=== PATIENT | male | born 1950 | race Caucasian/White ===

== ENCOUNTER 2017-01-05 06:37 | Inpatient (IN) | payer OTHER, MEDICARE ==
[~2017-01-05] VITALS: Ht 167.6 cm; Wt 81.7 kg
[~2017-01-05 06:37] MED LIST: ASPI-496 PO; CEFD300C37 PO; GABA300C10 PO; INSU100C5 SQ-INSULIN; INSU100I18 SQ-INSULIN; INSU100V8 SQ; LANS30CA PO; METF10002 PO; METO-93 PO; METO200T3 PO; METR500T PO; SIMV10TA3 PO; VALS1TAB12 PO
[2017-01-05] MEDS ORDERED: LACTATED RINGERS 1,000 ML IV SCH (07:28)
[2017-01-05] MEDS ORDERED: BUPIVACAINE/PF-EPI 0.5% 1:200K ONE (07:32)
[2017-01-05] MEDS ORDERED: THROMBIN 5,000 UNIT VIAL TP ONE (07:33)
[2017-01-05] MEDS ORDERED: SUFentanil 50 MCG/ML, 1ML ONE (07:46)
[2017-01-05] MEDS ORDERED: KETAMINE 10 MG/ML, 20ML ONE (07:46)
[2017-01-05] MEDS ORDERED: FENTANYL PF 100 MCG/2ML ONE ×2 (07:46→13:19)
[2017-01-05] MEDS ORDERED: GLYCOPYRROLATE 0.2MG/1ML ONE (08:04)
[2017-01-05] MEDS ORDERED: ONDANSETRON 2MG/ML, 2ML ONE (08:04)
[2017-01-05] MEDS ORDERED: METOCLOPRAMIDE 5 MG/ML, 2ML ONE (08:04)
[2017-01-05] MEDS ORDERED: NEOSTIGMINE 1 MG/ML, 10ML ONE (08:04)
[2017-01-05] MEDS ORDERED: ROCURONIUM 10 MG/ML ONE (08:04)
[2017-01-05] MEDS ORDERED: CEFAZOLIN 1,000 MG ONE (08:04)
[2017-01-05] MEDS ORDERED: PROPOFOL 10 MG/ML, 50ML ONE (08:04)
[2017-01-05] MEDS ORDERED: PROPOFOL 10 MG/ML, 20ML ONE (08:04)
[2017-01-05] MEDS ORDERED: PHENYLEPHRINE 10 MG/ML ONE (08:04)
[2017-01-05] MEDS ORDERED: hydrALAzine 20 MG/ML, 1ML IV PRN (09:00)
[2017-01-05] MEDS ORDERED: MEPERIDINE/PF 25MG/0.5ML IVPush PRN (09:00)
[2017-01-05] MEDS ORDERED: LABETALOL 5MG/ML, 20ML IV PRN (09:00)
[2017-01-05] MEDS ORDERED: PROMETHAZINE 25 MG/ML, 1ML IV PRN (09:00)
[2017-01-05] MEDS ORDERED: HYDROmorphone 1 MG/ML, 1ML IV PRN (09:00)
[2017-01-05] MEDS ORDERED: OXYcodone 5 MG/5 ML ORAL.SOL UDC PO PRN (09:00)
[2017-01-05] MEDS ORDERED: MIDAZOLAM 1 MG/ML, 2ML IV PRN (09:00)
[2017-01-05] MEDS ORDERED: ONDANSETRON 2MG/ML, 2ML IVPush PRN ×2 (09:00→15:30)
[2017-01-05] MEDS ORDERED: OXYcodone 5 MG/5 ML ORAL.SOL UDC ONE (13:19)
[2017-01-05] MEDS ORDERED: HYDROmorphone 2 MG/ML, 1ML ONE (13:19)
[2017-01-05] MEDS: FENTANYL PF 100 MCG/2ML IV PRN ×3 (13:20→14:07)
[2017-01-05] MEDS ORDERED: MEPERIDINE/PF 25MG/0.5ML ONE (13:24)
[2017-01-05] MEDS: ONDANSETRON 2MG/ML, 2ML IV PRN ×2 (15:17→23:48)
[2017-01-05] MEDS: morphine SULFATE 10 MG/ML, 1ML IV PRN ×2 (15:17→18:04)
[2017-01-05] MEDS ORDERED: TEMAZEPAM 15 MG CAPSULE PO PRN (15:30)
[2017-01-05] MEDS ORDERED: HYDROcodone/APAP 5/325 TABLET PO PRN (15:30)
[2017-01-05] MEDS: CEFAZOLIN PMX 1GM/50ML 50 ML IVPB SCH (16:54)
[2017-01-05] MEDS: D5%-0.45NACL+KCL 20MEQ 1,000 ML IV SCH (16:54)
[2017-01-05] MEDS: INSULIN ASPART 100 UNITS/ML, PEN SQ-INSULIN SCH ×2 (16:59→22:55)
[2017-01-05] MEDS ORDERED: SODIUM CHLORIDE 0.9%, 500ML IVBOLUS ONE (19:00)
[2017-01-05] MEDS ORDERED: LIDOCAINE GEL 2%, 5ML TP ONE (19:00)
[2017-01-05 20:02] VITALS: BP 93/56
[2017-01-05] MEDS: SIMVASTATIN 10 MG TABLET PO SCH (22:53)
[2017-01-06] MEDS: CEFAZOLIN PMX 1GM/50ML 50 ML IVPB SCH
[2017-01-06 00:24] VITALS: BP 132/71
[2017-01-06] MEDS: D5%-0.45NACL+KCL 20MEQ 1,000 ML IV SCH ×3 (01:06→16:04)
[2017-01-06] MEDS: OXYcodone/APAP 5/325MG TABLET PO PRN ×2 (01:39→19:57)
[2017-01-06 03:27] VITALS: BP 139/73
[2017-01-06 05:17] LABS: BLOOD UREA NITROGEN 13 mg/dL (7-18)
[2017-01-06] MEDS: METOPROLOL SUCCINATE 50 MG TAB.ER.24H PO SCH (06:19)
[2017-01-06 07:45] VITALS: BP 117/69
[2017-01-06] MEDS: PANTOPROZOLE 40MG TABLET PO SCH (07:45)
[2017-01-06] MEDS: VALSARTAN 160 MG TABLET PO SCH (07:46)
[2017-01-06] MEDS: INSULIN DETEMIR 100 UNITS/ML, PEN SQ-INSULIN SCH (07:51)
[2017-01-06] MEDS: INSULIN ASPART 100 UNITS/ML, PEN SQ-INSULIN SCH ×4 (07:53→21:17)
[2017-01-06] MEDS ORDERED: ENOXAPARIN 40 MG/0.4 ML SQ SCH ×2 (08:00)
[2017-01-06] MEDS ORDERED: chlorproMAZINE 200MG TABLET PO PRN (11:00)
[2017-01-06 12:36] VITALS: BP 128/72
[2017-01-06 19:13] VITALS: BP 157/67
[2017-01-06] MEDS: SIMVASTATIN 10 MG TABLET PO SCH (21:13)
[2017-01-06 23:57] VITALS: BP 114/67
[2017-01-07] MEDS ORDERED: OXYC-302 PO (00:06)
[2017-01-07] MEDS: D5%-0.45NACL+KCL 20MEQ 1,000 ML IV SCH ×2 (00:19→08:00)
[2017-01-07] MEDS: OXYcodone/APAP 5/325MG TABLET PO PRN ×2 (01:24→11:52)
[2017-01-07 03:43] VITALS: BP 139/75
[2017-01-07] MEDS: METOPROLOL SUCCINATE 50 MG TAB.ER.24H PO SCH (06:14)
[2017-01-07] MEDS: INSULIN ASPART 100 UNITS/ML, PEN SQ-INSULIN SCH ×2 (07:43→11:52)
[2017-01-07] MEDS: PANTOPROZOLE 40MG TABLET PO SCH (07:44)
[2017-01-07] MEDS: INSULIN DETEMIR 100 UNITS/ML, PEN SQ-INSULIN SCH (07:44)
[2017-01-07] MEDS ORDERED: ENOXAPARIN 40 MG/0.4 ML SQ SCH (08:00)
[2017-01-07 09:35] VITALS: BP 148/79
[2017-01-07] MEDS: VALSARTAN 160 MG TABLET PO SCH (09:37)
[2017-01-07 14:05] VITALS: BP 122/75
== END 2017-01-07 14:10 | disposition home or self-care (01) | DRG 708 ==
LOC: ORIP 06:37 → 4NOR 14:47
PROVIDERS: ADMIT Urology; ATTEND Urology
PROC: 8E0W4CZ Robotic Assisted Procedure of Trunk Region, Percutaneous Endoscopic Approach (ICD-10-PCS; 2017-01-05)
PROC: 0VT04ZZ Resection of Prostate, Percutaneous Endoscopic Approach (ICD-10-PCS; principal; 2017-01-05 08:00)
DX: C61 Malignant neoplasm of prostate (principal); E11.9 Type 2 diabetes mellitus without complications; I10 Essential (primary) hypertension; K21.9 Gastro-esophageal reflux disease without esophagitis; R06.6 Hiccough
CPT/HCPCS: 36415; 80048; 82962; 85014; 85018; 86850; 86900; 88309; C1729; J0690; J1170; J1650; J1815; J2175; J2405; J2704; J2710; J3010; J3490; C1760; J2270; J2370; J2765; J3480; J7040; J7120

== ENCOUNTER → 2017-01-12 | Outpatient (CLI) | payer OTHER ==
[~2017-01-12] MED LIST changes: +CYSTO CONRAY II 250 ML VIAL UR ONE; +OXYC-302 PO
== END | disposition home or self-care (01) ==
LOC: RAD 12:55
PROVIDERS: ATTEND Urology
DX: C61 Malignant neoplasm of prostate (principal)
CPT/HCPCS: 74430; Q9958